=== PATIENT | male | born 1985 | race Caucasian/White ===

== ENCOUNTER → 2018-07-22 13:37 | Outpatient (CLI) | payer SELFPAY ==
[2010-03-28 22:39] VITALS: BMI 28.5
--- NOTE | 2018-07-25 09:58 | EC ---
PATIENT:LETICIA MELENDEZ DATE OF SERVICE: 07/22/18 SEX: M MEDICAL RECORD: [id number] DATE OF : [birth year] LOCATION:[facility] [place] AGE OF PATIENT: 33 ADMISSION DATE: 07/22/18 REFERRING PHYSICIAN: INTERPRETING PHYSICIAN: PINA RANDOLPH MD ECHOCARDIOGRAM REPORT ECHO CHARGES 4 ECHO COMPLETE Date: 07/22/18 CLINICAL DIAGNOSIS: PALPITATIONS ECHOCARDIOGRAPHIC MEASUREMENTS (adult normal given) AC root (d.<3.7cm) 2.9 cm LV Septum d (<1.2 cm> 1.2 cm Valve Excursion 2.0 cm LV Septum (systole) 1.3 cm Left Atria (s.<4.0cm> 3.2 cm LVPW d(<1.2cm) 1.3 cm RV (d.<2.3cm) 4.2 cm LVPW (sytole) 1.4 cm LV diastole(<5.6CM) 4.6 cm MV E-F(>70mm/sec) cm LV systole 3.1 cm LVOT Diameter 2.1 cm MV exc.(>10mm) 1.8 cm Est.ejection fraction (50-75%) % DOPPLER: LVIT cm/sec A 58.0 cm/sec E 70.0 cm/sec LA cm/sec RVSP 20 mmHg LVOT 100 cm/sec AOP1/2T m/s Asc. Ao 123 cm/sec RVOT 78 cm/sec RA cm/sec PA 125 cm/sec AV Gradient Peak 6.09 mmHg AV Mean 3.15 mmHg AV Area 2.7 cm MV Gradient Peak 2.39 mmHg MV Mean 1.09 mmHg MV Area cm COMMENTS: Head Cook: 2 SELENA SIEGEL Legal Services Manager: 3 Dr. Swanson TAPE# PACS Pericardial Effusion N DATE OF SERVICE: Adequate 2D, color flow, spectral Doppler, and M-Mode. No LVH. LV internal dimension is normal. Wall motion is normal. EF is greater than or equal to 55%. Aortic valve is tricuspid. No evidence of stenosis by Doppler interrogation. Left atrium is normal. Mitral valve shows no prolapse. Trace MR. Right-sided chambers grossly normal. Trace TR. TRANSINT:[id number] Voice Confirmation ID: [id number] DOCUMENT ID: [id number] ECHOCARDIOGRAM REPORT [id number] LETICIA MELENDEZ PINA RANDOLPH MD at 0958 CC: [id number] DICTATION DATE: 07/23/18 1302 DAMAGE PREVENTION COORDINATOR: 07/23/18 1354 DEP CLI 07/22/18 [id number] [place] [address]
--- NOTE | 2018-07-26 09:13 | ST ---
PATIENT:LETICIA MELENDEZ MEDICAL RECORD: [id number] SEX: M LOCATION:[facility] ORDER #: ADMISSION DATE: 07/22/18 AGE OF PATIENT: 33 REFERRING PHYSICIAN: INTERPRETING PHYSICIAN: PINA RANDOLPH MD DATE OF SERVICE: 07/22/2018 PROCEDURE: Treadmill stress test. Baseline ECG is normal. Exercised for 10 minutes via Yazan protocol. Maximum heart rate 179 beats per minute, greater than 85% of max predicted. No ECG change for ischemia. No symptoms of ischemia. Normal blood pressure response to exercise. No arrhythmias noted. Good exercise tolerance for age. TRANSINT:[id number] Voice Confirmation ID: [id number] DOCUMENT ID: [id number] PINA RANDOLPH MD at 0913 CC: [id number] DICTATION DATE: 07/25/18 1019 FLOOR LAYER HELPER: 07/25/18 1233 DEP CLI 07/22/18 [id number] [place] [address]
== END | disposition home or self-care (01) ==
LOC: D.HCCARDIO 13:37
PROVIDERS: ATTEND Internal Medicine Interventional Cardiology
DX: R00.2 Palpitations (principal); R06.00 Dyspnea, unspecified

== ENCOUNTER → 2019-04-29 09:20 | Outpatient (CLI) | payer BC ==
[2010-03-28 22:39] VITALS: BMI 28.5
== END | disposition home or self-care (01) ==
LOC: D.NM 09:20
PROVIDERS: ATTEND Clinical Nurse Specialist Adult Health
DX: R10.9 Unspecified abdominal pain (principal)